=== PATIENT | female | born 1940 | race Caucasian/White ===

== ENCOUNTER 2016-10-29 09:35 | Emergency (ER) | payer MEDICAID ==
[~2016-10-29] VITALS: Ht 160 cm; Wt 63.0 kg
[~2016-10-29 09:35] MED LIST: CAPT12.52 PO; IBUP-727 PO; OMEP20CA9 PO
[2016-10-29 09:45] VITALS: Ht 160 cm; Wt 63.0 kg
[2016-10-29] MEDS ORDERED: ONDANSETRON (ODT) 4 MG TAB ODT STA (10:38)
[2016-10-29 10:58] LABS: ADD SCAN DIFF NO
[2016-10-29 11:00] LABS: BASOPHILS % 0.4 % (0.0-2.0); EOSINOPHILS # 0.1 10^3/ul (0.0-0.5); EOSINOPHILS % 1.8 % (0.0-7.0); HEMATOCRIT 35.1 % (37.0-47.0); HEMOGLOBIN 12.1 g/dl (12.0-16.0); LYMPHOCYTES # 2.1 10^3/ul (0.8-2.9); LYMPHOCYTES % 37.9 % (15.0-51.0); MEAN CORPUSCULAR HEMOGLOBIN 32.6 pg (29.0-33.0); MEAN CORPUSCULAR HGB CONC 34.5 g/dl (32.0-37.0); MEAN CORPUSCULAR VOLUME 94.6 fl (82.0-101.0); MEAN PLATELET VOLUME 9.5 fl (7.4-10.4); MONOCYTE # 0.4 10^3/ul (0.3-0.9); MONOCYTES % 6.5 % (0.0-11.0); NEUTROPHIL # 2.9 10^3/ul (1.6-7.5); NEUTROPHILS % 53.2 % (39.0-77.0); PLATELET COUNT 230 10^3/UL (140-415); RED BLOOD COUNT 3.71 10^6/ul (4.20-5.40); RED CELL DISTRIBUTION WIDTH 12.6 % (11.5-14.5); WHITE BLOOD COUNT 5.5 10^3/ul (4.8-10.8)
[2016-10-29] MEDS ORDERED: MECLIZINE 12.5 MG TAB PO ONE (11:00)
[2016-10-29] MEDS ORDERED: PANTOPRAZOLE (EC) 40 MG TAB PO ONE (11:00)
[2016-10-29 11:19] LABS: ALBUMIN 4.3 g/dl (3.3-4.9)
[2016-10-29 11:22] LABS: ALBUMIN/GLOBULIN RATIO 1.3; BILIRUBIN,INDIRECT 0.4 mg/dl (0-1.1); BILIRUBIN,TOTAL 0.4 mg/dl (0.2-1.3); CREATININE 0.63 mg/dl (0.44-1.00); TOTAL PROTEIN 7.6 g/dl (6.1-8.1)
[2016-10-29 11:23] LABS: CALCIUM 9.1 mg/dl (8.4-10.2); POTASSIUM 4.1 mmol/L (3.5-5.1)
[2016-10-29 11:54] LABS: ADD UMIC YES; URINE BILIRUBIN (Dip) NEGATIVE (NEGATIVE); URINE BLOOD (Dip) NEGATIVE (NEGATIVE); URINE COLOR LT. YELLOW (YELLOW); URINE GLUCOSE (Dip) NEGATIVE (NEGATIVE); URINE KETONES (Dip) NEGATIVE (NEGATIVE); URINE LEUKOCYTE ESTERASE (Dip) TRACE (NEGATIVE); URINE NITRITE (Dip) NEGATIVE (NEGATIVE); URINE TOTAL PROTEIN (Dip) NEGATIVE (NEGATIVE); URINE UROBILINOGEN (Dip) 0.2 E.U./dL (0.1-1.0)
[2016-10-29 12:48] LABS: BACTERIA,URINE RARE; URINE RBCS NONE SEEN /HPF (0)
--- NOTE | 2016-10-29 13:01 | ERD ---
ER Documentation Chief Complaint Date/Time DATE: 10/29/16 TIME: 12:59 Chief Complaint DIZZINESS SINCE TUESDAY. PT SUSPECTS SHE INADVERTENTLY INJESTED MARIJUANA. HPI Kyrgyz-speaking 76-year-old female presenting to emergency department today for dizziness described as spinning. 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 Patient was seen and treated at [facility] 10 days ago. Patient diagnosed with gastritis, vertigo, hypokalemia and dehydration. Patient remained in hospital for 3 days per patient history discharged with Dexilant, fluconazole, meclizine, Carafate, and Zofran. Patient reports that she finished the fluconazole, did not start Dexilant, meclizine, Carafate, or Zofran. Patient reports her symptoms have returned and they feel the same. Patient reports nausea, vomiting 1 yesterday reported brown emesis not coffee-ground or bloody. Patient is neurologically stable her exam, follows commands, alert oriented, no pronator drift or slurred speech. Patient denies chest pain, shortness of breath or palpitations. ROS All systems reviewed and are negative except as per history of present illness. Medications Home Meds Active Scripts Pantoprazole* (Protonix*) 40 Mg Tablet.dr, 40 MG PO DAILY, #20 TAB Prov:KARISSA,ROBINA 10/29/16 Meclizine Hcl* (Antivert*) 12.5 Mg Tab, 12.5 MG PO Q6H Y for DIZZINESS, #20 TAB Prov:KARISSA,ROBINA 10/29/16 Reported Medications Omeprazole* (Prilosec*) 20 Mg Capsule.dr, 1 TAB PO DAILY 02/06/13 Captopril* (Captopril*) 12.5 Mg Tablet, 50 MG PO BID 02/06/13 Ibuprofen (Motrin) 600 Mg Tablet, 1 TAB PO Q6 02/06/13 Allergies Allergies: Coded Allergies: Penicillins (Verified Allergy, Mild, 10/29/16) PMhx/Soc History of Surgery: Yes (C/SECTION) Anesthesia Reaction: No Hx Neurological Disorder: No Hx Respiratory Disorders: No Hx Cardiac Disorders: Yes (HIGH BP X 11YEARS; thyroid) Hx Psychiatric Problems: No Hx Miscellaneous Medical Probl: No Hx Alcohol Use: No Hx Substance Use: No Hx Tobacco Use: No Smoking Status: Never smoker Physical Exam Vitals Vital Signs Date Time Temp Pulse Resp B/P Pulse Ox O2 Delivery O2 Flow Rate FiO2 10/29/16 14:28 66 19 165/80 99 Room Air 10/29/16 09:45 98.1 77 16 142/92 98 Vitals stable, nursing notes reviewed Physical Exam Const: No acute distress Head: Atraumatic Eyes: Conjunctiva clear, no pallor or jaundice, EOMI, PERRLA ENT: Right tympanic membrane impacted with cerumen, left tympanic membrane translucent, auditory canals are clear, nasal mucosa is moist, septum midline, no bleeding points, pharynx moist, uvula rises and falls with pronation, tongue is midline Neck: Full range of motion..~ No meningismus. Resp: Clear to auscultation bilaterally Cardio: Regular rate and rhythm, no murmurs Abd: Soft, non tender, non distended. Normal bowel sounds negative McBurney' s point, negative Patel sign, negative CVA tenderness, negative epigastric tenderness Skin: Back: Ext: Neur: Alert and oriented, speech is clear, pupils equal round and reactive to light and accommodation, sensation to light touch is intact bilaterally. There is no pronator drift. Finger to nose test is intact bilaterally. Labor Custodian strength is 5/5. Flexion and extension is intact bilaterally Psych: Normal Mood and Affect Result Diagram: 10/29/16 1050 10/29/16 1050 Results 24 hrs Laboratory Tests Test 10/29/16 10:50 10/29/16 11:00 Alanine Aminotransferase (ALT/SGPT) 31IU/L Albumin 4.3g/dl Albumin/Globulin Ratio 1.30 Alkaline Phosphatase 78IU/L Anion Gap 14 Aspartate Amino Transf (AST/SGOT) 23IU/L Basophils # 0.010^3/ul Basophils % 0.4% Blood Urea Nitrogen 12mg/dl Calcium Level 9.1mg/dl Carbon Dioxide Level 31mmol/L Chloride Level 99mmol/L Creatinine 0.63mg/dl Direct Bilirubin 0.00mg/dl Eosinophils # 0.110^3/ul Eosinophils % 1.8% Globulin 3.30g/dl Glucose Level 104mg/dl Hematocrit 35.1% Hemoglobin 12.1g/dl Indirect Bilirubin 0.4mg/dl Lymphocytes # 2.110^3/ul Lymphocytes % 37.9% Mean Corpuscular Hemoglobin 32.6pg Mean Corpuscular Hemoglobin Concent 34.5g/dl Mean Corpuscular Volume 94.6fl Mean Platelet Volume 9.5fl Monocytes # 0.410^3/ul Monocytes % 6.5% Neutrophils # 2.910^3/ul Neutrophils % 53.2% Nucleated Red Blood Cells # 0.010^3/ul Nucleated Red Blood Cells % 0.0/100WBC Platelet Count 89104^3/UL Potassium Level 4.1mmol/L Red Blood Count 3.7110^6/ul Red Cell Distribution Width 12.6% Sodium Level 140mmol/L Total Bilirubin 0.4mg/dl Total Protein 7.6g/dl White Blood Count 5.510^3/ul Urine Bacteria RARE Urine Bilirubin NEGATIVE Urine Clarity CLEAR Urine Color LT. YELLOW Urine Epithelial Cells RARE Urine Glucose NEGATIVE% Urine Hemoglobin NEGATIVE Urine Ketones NEGATIVE Urine Leukocyte Esterase TRACE Urine Microscopic RBC NONE SEEN/HPF Urine Microscopic WBC 0-2/HPF Urine Nitrite NEGATIVE Urine Specific [place] 1.010 Urine Total Protein NEGATIVE Urine Urobilinogen 0.2 E.U./dL Urine pH 7.0 Current Medications Medications (Trade) Dose Ordered Sig/Anoop Route PRN Reason Start Time Stop Time Status Last Admin Dose Admin Pantoprazole (Protonix Tab) 40 mg ONCE ONCE PO 10/29/16 11:00 10/29/16 11:01 DC 10/29/16 10:51 Meclizine HCl (Antivert) 25 mg ONCE ONCE PO 10/29/16 11:00 10/29/16 11:01 DC 10/29/16 10:52 Ondansetron HCl (Zofran Odt) 4 mg ONCE STAT ODT 10/29/16 10:38 10/29/16 10:42 DC 10/29/16 10:51 I Interpretation text CBC shows no evidence of hemorrhage or infection Chemistry shows no evidence of significant electrolyte abnormalities or renal insufficiency Liver function tests shows no evidence of acute biliary or hepatic dysfunction Lipase shows no evidence of acute pancreatitis Urinalysis negative for evidence of leukocytosis or hematuria Procedures/MDM Pleasant 76-year-old Kyrgyz-speaking feeling presents to emergency department for dizziness. She has pre-existing history of gastritis and was previously seen at [facility], admitted for evaluation and started on Dexilant, fluconazole, meclizine, Carafate, and Zofran. Patient reports that she took fluconazole but has not taken any other medication. Patient is here essentially for the same complaint. She does not have evidence of GI bleed at this time. CBC and CMP are essentially normal. Urinalysis without leukocytosis or hematuria, I feel the patient is stable for discharge at this time.and can be treated outpatient and followed by primary care physician. I have discussed results, examination findings, the treatment plan with the patient prior to discharge. Stressed the importance of taking medication as prescribed. Indications for emergent reevaluation coffee-ground emesis, worsening of abdominal pain, blood in stool or vomit., side effects of medication were also discussed. All questions were answered. Patient verbalizes understanding and agrees with plan of care. Departure Diagnosis: Primary Impression: Gastritis Gastritis type: unspecified gastritis Chronicity: unspecified Gastritis bleeding: without bleeding Qualified Code: K29.70 - Gastritis without bleeding, unspecified chronicity, unspecified gastritis type Additional Impression: Dizziness Condition: Good ROBINA HANCOCK Oct 29, 2016 13:00
[2016-10-29] MEDS ORDERED: PANT40TA3 PO (13:14)
[2016-10-29] MEDS ORDERED: MECL12.574 PO (13:14)
[2016-10-29 14:28] VITALS: BP 165/80; PULSE 66; RESP 19
== END 2016-10-29 14:29 | disposition home or self-care (01) ==
LOC: FTE 09:35
DX: K29.70 Gastritis, unspecified, without bleeding (principal); R11.2 Nausea with vomiting, unspecified
CPT/HCPCS: 80053; 81001; 85025; Z7502; Z7610; 81003; 99284